=== PATIENT | female | born 1985 | race American Indian/Alaskan Native ===

== ENCOUNTER 2017-12-06 02:18 | Emergency (ER) | payer BC, OTHER ==
[2017-12-06 02:51] VITALS: RESP 18
[2017-12-06] MEDS ORDERED: Tetanus/Diphtheria Toxoids 0.5 ml Syringe IM ONE (03:00)
--- NOTE | 2017-12-06 03:08 | C.PDOC ---
History Of Present Illness 32 year old female presents to the ER after she was working on a truck at work and a small metal flap dislodged and fell on her head, causing a laceration to the head. Denies LOC, headache, or vomiting. - HPI Time Seen by Provider: 12/06/17 02:40 Chief Complaint (Nursing): Trauma History Per: Patient History/Exam Limitations: no limitations Onset/Duration Of Symptoms: Hrs Injury Occurred (Timing): Just Before Arrival Recent travel outside of the [place]: No Past Medical History Reviewed: Historical Data, Nursing Documentation, Vital Signs Vital Signs: Last Vital Signs Temp 98.1 F 12/06/17 03:59 Pulse 74 12/06/17 03:59 Resp 18 12/06/17 03:59 BP 121/73 12/06/17 03:59 Pulse Ox 96 12/06/17 04:48 Family History: States: Unknown Family Hx - Social History Hx Tobacco Use: Yes Hx Alcohol Use: Yes Hx Substance Use: No - Immunization History Hx Tetanus Toxoid Vaccination: Yes Hx Influenza Vaccination: No Hx Pneumococcal Vaccination: No Review Of Systems Gastrointestinal: Negative for: Vomiting Skin: Positive for: Other (Laceration) Neurological: Negative for: Headache, Other (LOC) Physical Exam - Physical Exam Appears: Non-toxic, No Acute Distress Skin: Warm, Dry Head: Normacephalic, Laceration (Superficial 1.5 cm to mid scalp.), No Other ( Hematoma) Eye(s): bilateral: Normal Inspection, PERRL, EOMI Oral Mucosa: Moist Neck: Normal, No Midline Cervical Tenderness, No Paracervical Tenderness, Supple Neurological/Psych: Oriented x3, Normal Speech, Normal Motor, Normal Sensation ED Course And Treatment O2 Sat by Pulse Oximetry: 96 (Room air) Pulse Ox Interpretation: Normal Progress Note: Tylenol administered for pain. Area cleansed and closed with two ha, tetanus vaccination administered. I discussed the risk (radiation) and benefit (finding a problem needing surgery) with the patient. The patient is acting normally and has a normal neurological exam. The likelihood of finding a lesion needing intervention on the CT scan is extremely low. Patient agrees that at this time no CT scan will be done. If there is any change or new concern, the patient will return as soon as possible to the ED for further evaluation. Laceration - Laceration Repair Mid scalp Wound Length (In cm): 1.5 Description Of Wound: Linear Wound Cleansed With: Sterile Saline Wound Examination: Irrigated With Saline Wound Closure: [place] (x2) Disposition Counseled Patient/Family Regarding: Diagnosis, Need For Followup - Disposition Referrals: [facility] at [facility] [Outside] Disposition: HOME/ ROUTINE Disposition Time: 03:05 Condition: STABLE Additional Instructions: Follow up with PMD in 2 days Wound check in 2 days Follow head injury precautions Return to ER if worse Instructions: Laceration Repair With [place] (DC), Minor Head Injury (DC) Forms: [facility] (Greek), Work Excuse - Clinical Impression Clinical Impression: Scalp laceration, Head injury due to trauma - 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 - Scribe Statement The provider has reviewed the documentation as recorded by the Scribkitty Ramos All medical record entries made by the Scribkitty were at my direction and personally dictated by me. I have reviewed the chart and agree that the record accurately reflects my personal performance of the history, physical exam, medical decision making, and the department course for this patient. I have also personally directed, reviewed, and agree with the discharge instructions and disposition.
[2017-12-06] MEDS ORDERED: Tdap Vaccine 0.5 ml Vial (10-64 yrs) IM ONE (03:27)
[2017-12-06 04:01] VITALS: BP 121/73; PULSE 74; TEMP 98.1
[2017-12-06 04:42] VITALS: O2SAT 96
== END 2017-12-06 04:01 | disposition home or self-care (01) ==
LOC: C.ER 02:18
DX: S01.01XA Laceration without foreign body of scalp, initial encounter (principal); W22.8XXA Striking against or struck by other objects, initial encounter; Y92.89 Other specified places as the place of occurrence of the external cause; Y99.0 Civilian activity done for income or pay; Z23 Encounter for immunization

== ENCOUNTER 2018-02-07 01:24 | Emergency (ER) | payer OTHER ==
[2018-02-07] MEDS ORDERED: Sodium Chloride 0.9% 1,000 ML IV ONE (02:11)
--- NOTE | 2018-02-07 02:12 | C.PDOC ---
Time Seen by Provider: 02/07/18 01:43 Chief Complaint (Nursing): Headache Past Medical History Vital Signs: Last Vital Signs Temp 98.2 F 02/07/18 01:38 Pulse 76 02/07/18 01:38 Resp 22 02/07/18 01:38 BP 129/86 02/07/18 01:38 Pulse Ox 99 02/07/18 01:38 - Medical History PMH: Migraine Denies: Chronic Kidney Disease Family History: States: Unknown Family Hx - Social History Hx Tobacco Use: Yes Hx Alcohol Use: Yes Hx Substance Use: No - Immunization History Hx Tetanus Toxoid Vaccination: Yes Hx Influenza Vaccination: No Hx Pneumococcal Vaccination: No ED Course And Treatment O2 Sat by Pulse Oximetry: 99 Disposition - Disposition
--- NOTE | 2018-02-07 02:13 | C.PDOC ---
History Of Present Illness 32 y/o female presents to the ED complaining of headaches, occurring on and off since November following alleged injury at work. Patient was seen at [facility] last week , and given unknown pain med prescription for the same complaint. Denies current narcotic use. Denies any drug allergies. Otherwise no fever, nausea, vomiting, rash, dizziness, visual loss, or prior hx of migraines. Patient admits to photophobia associated with headaches. Also reports PMHx of Chiari malformation and is supposed to follow up with a neurologist, pending resolution of insurance problem. Time Seen by Provider: 02/07/18 01:43 Chief Complaint (Nursing): Headache History Per: Patient History/Exam Limitations: no limitations Onset/Duration Of Symptoms: Intermittent Episodes Current Symptoms Are (Timing): Still Present Associated Symptoms: Photophobia Past Medical History Reviewed: Historical Data, Nursing Documentation, Vital Signs Vital Signs: Last Vital Signs Temp 98.4 F 02/07/18 03:50 Pulse 86 02/07/18 03:50 Resp 18 02/07/18 03:50 BP 121/81 02/07/18 03:50 Pulse Ox 100 02/07/18 03:50 - Medical History PMH: Migraine Denies: Chronic Kidney Disease Other PMH: Chiari malformation Family History: States: Unknown Family Hx - Social History Hx Tobacco Use: Yes Hx Alcohol Use: Yes Hx Substance Use: No - Immunization History Hx Tetanus Toxoid Vaccination: Yes Hx Influenza Vaccination: No Hx Pneumococcal Vaccination: No Review Of Systems Except As Marked, All Systems Reviewed And Found Negative. Constitutional: Negative for: Fever, Weakness Eyes: Positive for: Other (Photophobia). Negative for: Vision Change Gastrointestinal: Negative for: Nausea, Vomiting Neurological: Positive for: Headache. Negative for: Dizziness Physical Exam - Physical Exam Appears: Non-toxic, No Acute Distress Skin: Normal Color, Warm, Dry Head: Atraumatic, Normacephalic Eye(s): bilateral: Normal Inspection, PERRL, EOMI, Other (Patient winces upon turning on exam light) Nose: Normal Oral Mucosa: Moist Neck: Normal ROM, Trachea Midline, No Midline Cervical Tenderness, Supple Chest: Symmetrical, No Deformity Cardiovascular: Rhythm Regular, No Murmur Respiratory: Normal Breath Sounds, No Rales, No Rhonchi, No Wheezing Gastrointestinal/Abdominal: Soft, No Tenderness, No Distention Back: Normal Inspection, No Vertebral Tenderness Extremity: Bilateral: Atraumatic, Normal Color And Temperature, Normal ROM Neurological/Psych: Oriented x3, Normal Speech, Normal Cranial Nerves (2-12 intact), Other (Negative Kernigs sign, Negative Brudzinskis sign, No sensorimotor deficits) Gait: Steady ED Course And Treatment O2 Sat by Pulse Oximetry: 99 (RA) Pulse Ox Interpretation: Normal Medical Decision Making Medical Decision Making: Impression: Muscle tension headache Plan: --IV fluids --IV Toradol --IV Compazine --Reassessment after meds given Progress/Updates: 3:35 On reevaluation, patient is resting comfortably and reports complete relief of symptoms. Patient is stable for discharge home, provided prescriptions for Fioricet. Counseled regarding diagnosis and treatment plan. Disposition Counseled Patient/Family Regarding: Diagnosis, Need For Followup, Rx Given - Disposition Referrals: [facility] [Outside] Disposition: HOME/ ROUTINE Disposition Time: 03:38 Condition: GOOD Prescriptions: Acetaminophen/Butalbital/Caf [Fioricet] 1 tab PO QID PRN #15 tab PRN Reason: Pain, Mild (1-3) Instructions: Tension Headache Forms: [facility] (Irish) Print Language: HONDURAN - POA Present On Arrival: None - Clinical Impression Clinical Impression: Headache - Scribe Statement The provider has reviewed the documentation as recorded by the Scribe (Sydney Lepe) Provider Attestation: All medical record entries made by the Scribe were at my direction and personally dictated by me. I have reviewed the chart and agree that the record accurately reflects my personal performance of the history, physical exam, medical decision making, and the department course for this patient. I have also personally directed, reviewed, and agree with the discharge instructions and disposition.
[2018-02-07] MEDS ORDERED: Sodium Chloride 0.9% 1,000 ML ONE (02:29)
[2018-02-07 03:51] VITALS: BP 121/81; PULSE 86; RESP 18; TEMP 98.4
[2018-02-07 03:54] VITALS: O2SAT 99
== END 2018-02-07 03:52 | disposition home or self-care (01) ==
LOC: C.ER 01:24
DX: R51 Headache (principal); Z72.0 Tobacco use
CPT/HCPCS: 96361; 96374; 96375; 99285; J0780; J1885; J7030